=== PATIENT | male | born 1955 | race Caucasian/White ===

== ENCOUNTER → 2017-12-10 | Outpatient (CLI) | payer OTHER | LOC: M PLARAD 14:22 | DX: D35.2 Benign neoplasm of pituitary gland (principal) | CPT/HCPCS: 70553 ==

== ENCOUNTER → 2019-10-29 | Outpatient (CLI) | payer OTHER ==
[~2019-10-29] MED LIST: PROHANCE 279.3MG/ML 15ML VIAL (A9576) As Ordered ONE; PROHANCE 279.3MG/ML 5ML VIAL (A9576) As Ordered ONE
--- NOTE | 2019-10-29 14:46 | REP ---
MRI STUDY OF THE BRAIN WITHOUT AND WITH IV CONTRAST: HISTORY: Known pituitary macroadenoma. Status post surgery times two. Comparison MRI study December 10, 2017 and July 21, 2013. TECHNIQUE: Axial, coronal and sagittal imaging planes are utilized. T1- and T2-weighted scans are obtained. Sequences include spin-echo, turbo spin echo, inversion recovery, diffusion, and postcontrast thin sections through the region of the pituitary. The gadolinium enhancement dose is 17 mL of intravenous ProHance. MRI FINDINGS: Previously noted known heterogeneously enhancing pituitary macroadenoma is again seen unchanged in overall dimensions measuring 33 mm in right to left x 33 mm in anterior to posterior x 32 mm in craniocaudal span. Extension into the suprasellar cistern displacing the optic chiasm, into the right cavernous sinus surrounding the right internal carotid artery is again noted also unchanged. Postoperative changes noted in the sphenoid sinus and clivus. Encephalomalacia changes are again noted in the right temporal lobe and right frontal lobe. There is a small periventricular cyst in the inferior right frontal lobe 11 mm in diameter also unchanged. Mild generalized volume loss is seen. There is no evidence of acute ischemia, extra-axial fluid collection, or new mass lesion. IMPRESSION: Stable MRI findings. 3.3 cm pituitary macroadenoma again noted unchanged in dimensions and extent. Electronically Signed by Eric Lyons MD 10/29/2019 03:10 P
== END ==
LOC: M RAD 12:44
PROVIDERS: ATTEND Internal Medicine
DX: E23.0 Hypopituitarism (principal)
CPT/HCPCS: 70553; A9576

== ENCOUNTER → 2022-11-15 | Outpatient (CLI) | payer MEDICARE, OTHER | LOC: M WHC 12:43 | PROVIDERS: ATTEND Nurse Practitioner | DX: M81.8 Other osteoporosis without current pathological fracture (principal); M85.89 Other specified disorders of bone density and structure, multiple sites ==

== ENCOUNTER → 2022-11-23 | Outpatient (CLI) | payer MEDICARE, OTHER | LOC: M PLARAD 10:53 | PROVIDERS: ATTEND Nurse Practitioner | DX: E23.7 Disorder of pituitary gland, unspecified (principal) ==

== ENCOUNTER → 2023-05-22 | Outpatient (CLI) | payer MEDICARE, OTHER | LOC: M CARPUL 13:32 | PROVIDERS: ATTEND Physician Assistant | DX: R06.00 Dyspnea, unspecified (principal) ==

== ENCOUNTER → 2023-11-21 | Outpatient (CLI) | payer OTHER, MEDICARE, BC | LOC: M WHC 10:48 | PROVIDERS: ATTEND Nurse Practitioner Family | DX: M85.851 Other specified disorders of bone density and structure, right thigh (principal); M85.852 Other specified disorders of bone density and structure, left thigh ==

== ENCOUNTER → 2024-10-27 | Outpatient (CLI) | payer MEDICARE, OTHER ==
[~2024-10-27] MED LIST changes: -PROHANCE 279.3MG/ML 15ML VIAL (A9576) As Ordered ONE; -PROHANCE 279.3MG/ML 5ML VIAL (A9576) As Ordered ONE; +PROHANCE 279.3MG/ML 5ML VIAL ONE
== END ==
LOC: M PLAIMG 12:10
PROVIDERS: ATTEND Nurse Practitioner Family
DX: D35.2 Benign neoplasm of pituitary gland (principal)
CPT/HCPCS: 70553; A9576

== ENCOUNTER → 2025-06-16 | Outpatient (CLI) | payer OTHER, MEDICARE, BC | LOC: M WHC 12:37 | PROVIDERS: ATTEND Nurse Practitioner Family | DX: M81.0 Age-related osteoporosis without current pathological fracture (principal) ==